=== PATIENT | female | born 1935 | race Caucasian/White ===

== ENCOUNTER 2016-09-01 07:35 | Inpatient (IN) | payer MEDICARE ==
[2016-09-01] VITALS (7 sets, daily range): BP systolic 126–152; BP diastolic 57–87
[~2016-09-01] VITALS: Ht 152.4 cm; Wt 73.6 kg
--- NOTE | ~2016-09-01 | ST ---
[place], [place] EXERCISE STRESS TEST REPORT NAME: [id number] UNIT #: [id number] ROOM: 503 DOCTOR: MINAL PURDY MD BIRTHDATE: [birth year] DOS: 09/02/2016 INDICATIONS: Central chest pressure. PROCEDURE: The patient was given a rapid infusion of regadenoson 0.4 mg intravenously followed by a saline flush. She experienced some chest discomfort and tachycardia, which resolved spontaneously. The resting heart rate of 117 buster to 139. The resting blood pressure of 140/84 fell to 110/50. She had no diagnostic electrocardiographic changes aside from the tachycardia. Forty seconds after the infusion of regadenoson, she was given radionuclide intravenously. IMPRESSION: 1. Well tolerated infusion of regadenoson. 2. Radionuclide injected. Please see the separate imaging report for further details of the patient's stress test results. MINAL PURDY MD CM:STRESS:EXERCISE STRESS TEST REPORT [id number] MINAL PURDY MD
--- NOTE | ~2016-09-01 | CON ---
[place], [place] REPORT OF CONSULTATION [id number] UNIT #: [id number] ROOM: 503 DOCTOR: MINAL PURDY MD BIRTHDATE: [birth year] DOS: 09/01/2016 REASON FOR CONSULTATION: Chest pressure consistent with coronary artery disease and ischemia. HISTORY OF PRESENT ILLNESS: The patient is an 80-year-old woman who has no documented history of heart disease. She was evaluated for chest pressure in 05/2006. A stress test at that time showed an ejection fraction of 44%, but no evidence for ischemia. Apparently, no further evaluation was done. The chart indicates that she might have had atrial fibrillation in the past, but she has no knowledge of this diagnosis. She specifically denies any history of heart attack or stroke. This morning, she got up as normal and was getting her breakfast when she noticed a heavy sensation in her chest. This did not radiate, but sat in the middle of her chest. It was not associated with diaphoresis, nausea or dyspnea; however, she did feel some numbness in her feet and felt generally weak. The symptoms did not resolve spontaneously, so she called family members who brought her to the Emergency Room. In the Emergency Room, her symptoms resolved spontaneously with a total duration of symptoms over an hour. The initial electrocardiogram showed sinus rhythm with low voltage in the precordial leads, but no specific ST or T-wave changes. Initial cardiac biomarkers were normal. PAST MEDICAL HISTORY: Includes; 1. Essential hypertension. 2. Hyperthyroidism. 3. Gastroesophageal reflux disease and dyspepsia. 4. History of diverticulosis. 5. History of cholecystectomy, breast biopsy, and hysterectomy. 6. Questionable history of atrial fibrillation. This is mentioned in the chart, but there is no good documentation available. MEDICATIONS Prior to admission, aspirin 81 mg daily, bethanechol 25 mg b.i.d., calcium carbonate with vitamin D 2 tablets daily, cyanocobalamin 500 mcg daily, diltiazem 300 mg daily, [place] 7.5/325 p.r.n., levothyroxine 88 mcg daily, loratadine 10 mg daily, magnesium oxide 400 mg b.i.d., pantoprazole 40 mg daily, potassium 10 mEq daily, pravastatin 20 mg at bedtime, Senokot 8.6 mg daily, and Aldactazide 25/25 one half tablet daily. ALLERGIES: The patient has no known drug allergies. FAMILY HISTORY: A paternal aunt had breast cancer and heart attack. Her father in a car wreck at age 53, and her mother of surgical complications and pancreatitis at age 73. REVIEW OF SYSTEMS: The patient denies diplopia or loss of vision. She denies lightheadedness or syncope. She denies palpitations, orthopnea or PND. She denies any focal weakness. She denies fevers, chills, sweats or recent weight change. She denies nausea or vomiting. She denies change in bowel or bladder habits. She denies bleeding from any orifice. She denies any peripheral edema. [place], [place] REPORT OF CONSULTATION NAME: MARION PHAN UNIT #: [id number] ROOM: [facility] DOCTOR: MINAL PURDY MD BIRTHDATE: [birth year] She does have frequent episodes of dyspepsia (food just lays in her abdomen). She does have significant arthritic pains in her back and hips. She denies heat or cold intolerance and denies polyuria or polydipsia. Remainder of the review of systems is negative except as noted above. SOCIAL HISTORY: The patient lives alone with family members nearby. She does not smoke or consume alcohol. PHYSICAL EXAMINATION: GENERAL: The patient is an overweight white female who is awake, alert and oriented. VITAL SIGNS: Pulse is 92 and regular, blood pressure is 149/87. She weighs 73.5 kg and has a body mass index of 31.6. HEENT: Normocephalic, atraumatic. Extraocular muscles are intact. Sclerae are clear. Pupils are equal, round and reactive to light. Oral mucosa is moist. Tongue is midline. NECK: Supple. She has no jugular distention. Carotids are full. I heard no bruits. She had no neck or supraclavicular masses. No thyromegaly. LUNGS: Respirations are unlabored. Her chest is clear to auscultation and percussion. She has no presacral edema or chest wall tenderness. I could not reproduce her chest pain by palpation of her chest. CARDIOVASCULAR: Her heart had a regular rhythm with an S4 gallop and no S3 or murmur. The PMI is not displaced. She had no precordial heave, lift or thrill. ABDOMEN: Obese, but otherwise benign, without masses, organomegaly, bruits or tenderness. EXTREMITIES: Showed no edema. Peripheral pulses were bounding in the feet bilaterally. LABORATORY DATA: I reviewed her electrocardiogram, which shows sinus rhythm with a leftward axis. There was low voltage in the precordial leads with poor precordial R-wave progression, no acute ST or T-wave changes were seen. Initial CK-MB and troponin levels are normal. IMPRESSION: 1. Central chest discomfort. Symptoms are consistent with angina, but she has no objective findings to suggest acute coronary injury. 2. Essential hypertension. 3. Gastroesophageal reflux disease. 4. Poorly documented history of possible atrial fibrillation. At this point, I think we have to assume that the patient does not have atrial fibrillation until proven otherwise. PLAN: We will monitor the patient overnight and check her cardiac biomarkers. If nothing shows up, she will undergo a pharmacologic stress test within the next 24 hours. I have discussed the indications of stress testing with the patient and her daughter, and they agreed to proceed with my recommendations. Further recommendations will depend upon the results of the stress test and her observation in the hospital. We will check an echocardiogram for left ventricular and left atrial size and function. [place], [place] REPORT OF CONSULTATION [facility] [id number] UNIT #: [id number] ROOM: [facility] DOCTOR: MINAL PURDY MD BIRTHDATE: [birth year] We thank the hospitalist physicians for asking our advice regarding her care. MINAL PURDY MD CM:CONSTR:REPORT OF CONSULTATION 1050 09/01/16 1236 interface
--- NOTE | ~2016-09-01 | PR ---
[place], [place] PROGRESS NOTE NAME: MARION PHAN [facility] #: [id number] UNIT #: [id number] ROOM: 503 DOCTOR: GURWINDER REGALADO,MINAL BIRTHDATE: [birth year] DOS: 09/02/2016 CARDIOLOGY PROGRESS NOTE SUBJECTIVE: The patient was seen in the Cardiology Department just prior to her stress test. She has had no further problems overnight and specifically denies any chest discomfort. Serial cardiac enzymes have been negative. Her electrocardiogram today shows sinus tachycardia, but no acute ST changes. PHYSICAL EXAMINATION: VITAL SIGNS: Her pulse is 117 and regular, blood pressure is 140/84. NECK: Supple. She has no jugular distention. CHEST: Clear. HEART: Has a regular rhythm with an S4 gallop. ABDOMEN: Soft. EXTREMITIES: Showed no edema. IMPRESSION: 1. Central chest discomfort, symptoms are consistent with angina, but thus far there have been no objective findings to suggest an acute coronary injury. 2. Essential hypertension. 3. Gastroesophageal reflux disease. 4. Poorly documented history of possible atrial fibrillation. At this point, I have no evidence to suggest that she truly does have atrial arrhythmias. PLAN: We will proceed with a pharmacologic stress test. Further recommendations depend upon the results of the test. MINAL PURDY MD CM:PNTRANS 1202 [id number] MINAL PURDY MD 09/02/16 1433 interface
[~2016-09-01 07:35] MED LIST: ALDACTONE100 MG PO; AMOXICILLIN500 MG PO; ASPIRIN ADULT L81 M1 PO; ASPIRIN81 M1 PO; BACTRIM DS 8001 TA1 PO; BETHANECHOL CHL25 MG PO; CALCIUM + D SO1 EACH PO; CARAFATE1 G1 PO; CARDIZEM CD300 MG PO; CIPROFLOXACIN500 MG PO; CLARITIN10 MG PO; CYCLOBENZAPRINE10 MG PO; Carafate1 GM/10 ML PO; DARVOCET N 1001 TAB PO; DICYCLOMINE10 MG PO; DILTIAZEM CD300 MG PO; FLAGYL500 MG PO; HYOMAX0.125 MG; IBU800 MG PO; K-DUR 1010 MEQ PO; KLOR-CON 1010 ME1 PO; LEVAQUIN750 MG PO; LEVOTHYROXIN0.088 MG PO; LEVOXYL0.088 MG PO; MAG-OX 400400 MG PO; MAGNESIUM OXID400 MG PO; MAGOX 400400 MG PO; MOBIC15 MG PO; NORCO 325 MG-7.1 TAB PO; NORCO 7.5-3251 EACH PO; PANTOPRAZOLE40 M1 PO; PERCOCET 325 MG1 TA2 PO; PRAVACHOL20 MG PO; PRILOSEC20 MG PO; PROTONIX TR40 M1 PO; PROTONIX40 M1 IV; PROTONIX40 MG PO; QUALITY CHOICE10 M3 PO; RANITIDINE150 MG PO; SEN-O-TABS8.6 MG PO; SENOKOT S PO; SPIRONOLACTONE1 TA1 PO; SPIRONOLACTONE1 TAB PO; VICODIN 5/500 505 M1 PO; VICODIN ES 7501 TAB PO; VITAMIN B12500 MCG PO; VOLTAREN GEL1% TP; ZANTAC 150150 MG PO; ZESTORETIC 25 M1 TA1 PO; ZITHROMAX250 MG PO; ZOCOR10 MG PO
[2016-09-01] MEDS ORDERED: ALDACTAZIDE 251 TAB PO (07:53)
[2016-09-01] MEDS ORDERED: VITAMIN B1250 MCG PO (07:55)
[2016-09-01 08:33] LABS: BASO % 0.5 % (0.0-1.0); EOS # 0.1 10*3/uL (0.0-0.4); EOS % 1.5 % (1.0-4.0); HEMATOCRIT 39.4 % (37.0-47.0); HEMOGLOBIN 13.1 g/dl (12.0-16.0); LYMPH # 1.6 10*3/uL (1.3-4.4); LYMPH % 18.5 % (27.0-41.0); MEAN CELL VOLUME 85.1 fl (81.0-99.0); MEAN CORPUSCULAR HGB 28.3 pg (27.0-31.0); MEAN CORPUSCULAR HGB CONC 33.2 g/dl (33.0-37.0); MEAN PLATELET VOLUME 9.1 fl (9.6-12.3); MONO # 0.8 10*3/uL (0.1-1.0); MONO % 8.6 % (3.0-9.0); NEUT # 6.2 10*3/uL (2.3-7.9); NEUT % 70.7 % (47.0-73.0); PLATELET COUNT AUTOMATED 245 10*3/uL (130-400); RED BLOOD COUNT 4.63 10*6/uL (4.10-5.10); RED CELL DISTRI WIDTH 15.1 % (0-14.5); WHITE BLOOD COUNT 8.8 10*3/uL (4.8-10.8)
[2016-09-01 08:42] LABS: INTERNATIONAL NORM RATIO 0.9 (2.0-3.5); PROTHROMBIN TIME 9.9 SECONDS (9.0-12.4)
[2016-09-01 08:51] LABS: ALBUMIN 3.4 gm/dl (3.1-4.5); ALKALINE PHOSPHATASE 85 U/L (45-117); BILIRUBIN, TOTAL 0.3 mg/dl (0.2-1.0); BUN 12 mg/dl (7-24); C-REACTIVE PROTEIN 0.37 MG/DL (0-0.3); CARBON DIOXIDE 28 mmol/L (21-32); CHLORIDE 104 mmol/L (98-107); CKMB 1.3 ng/ml (0.5-3.6); CPK 136 U/L (26-192); EST GLOM FILT AFRICAN AMERICAN > 60 ml/min; GLUCOSE 94 mg/dL (65-99); MAGNESIUM 1.8 mg/dL (1.5-2.1); POTASSIUM 3.5 mmol/L (3.5-5.1); SGOT/AST 16 IU/L (3-35); SGPT/ALT 28 U/L (12-78); SODIUM 143 mmol/L (136-145); TOTAL PROTEIN 7.1 gm/dL (6.4-8.2)
[2016-09-01 08:52] LABS: TROPONIN I < 0.015 ng/ml (<0.045)
[2016-09-01 09:07] LABS: BILIRUBIN NEGATIVE (NEGATIVE); BLOOD TRACE-INTACT (NEGATIVE); CLARITY CLEAR (CLEAR); COLOR YELLOW (YELLOW); GLUCOSE NEGATIVE (NEGATIVE); KETONE NEGATIVE (NEGATIVE); LEUKO ESTERASE NEGATIVE (NEGATIVE); NITRITE NEGATIVE (NEGATIVE); PROTEIN NEGATIVE (NEGATIVE); SPECIFIC GRAVITY <= 1.005 (1.005-1.030); UROBILINOGEN 0.2 E.U./dl (0.2-1.0)
[2016-09-01 09:17] LABS: BACTERIA 2+; EPITHELIAL CELLS 0-2; URINE REFLEX COMMENT YES (NO)
[2016-09-02] VITALS: BP 125/61
[2016-09-02 06:14] LABS: BASO % 0.5 % (0.0-1.0); EOS # 0.1 10*3/uL (0.0-0.4); EOS % 0.9 % (1.0-4.0); HEMATOCRIT 38.7 % (37.0-47.0); LYMPH % 15.5 % (27.0-41.0); MEAN CELL VOLUME 85.2 fl (81.0-99.0); MEAN CORPUSCULAR HGB 28.6 pg (27.0-31.0); MEAN CORPUSCULAR HGB CONC 33.6 g/dl (33.0-37.0); MEAN PLATELET VOLUME 9.3 fl (9.6-12.3); MONO # 0.8 10*3/uL (0.1-1.0); MONO % 11.6 % (3.0-9.0); NEUT # 4.7 10*3/uL (2.3-7.9); PLATELET COUNT AUTOMATED 232 10*3/uL (130-400); RED BLOOD COUNT 4.54 10*6/uL (4.10-5.10); RED CELL DISTRI WIDTH 15.1 % (0-14.5); WHITE BLOOD COUNT 6.7 10*3/uL (4.8-10.8)
[2016-09-02 06:38] LABS: HEMOGLOBIN A1c 6.2 % (4.8-5.6)
[2016-09-02 06:43] LABS: ALBUMIN 3.2 gm/dl (3.1-4.5); ALKALINE PHOSPHATASE 79 U/L (45-117); BILIRUBIN, TOTAL 0.4 mg/dl (0.2-1.0); BUN 12 mg/dl (7-24); CARBON DIOXIDE 31 mmol/L (21-32); CHLORIDE 105 mmol/L (98-107); CHOLESTEROL 188 mg/dL (<200); EST GLOM FILT AFRICAN AMERICAN > 60 ml/min; FREE T4 0.96 ng/dl (0.76-1.46); GLUCOSE 101 mg/dL (65-99); HDL CHOLESTEROL 62 mg/dl (40-60); LDL CHOLESTEROL 92 mg/dL (9-159); MAGNESIUM 1.8 mg/dL (1.5-2.1); PHOSPHOROUS 3.4 mg/dL (2.5-4.9); SGOT/AST 13 IU/L (3-35); SGPT/ALT 29 U/L (12-78); SODIUM 144 mmol/L (136-145); TOTAL PROTEIN 6.6 gm/dL (6.4-8.2); TRIGLYCERIDES 172 mg/dl (<150); VLDL CHOLESTEROL 34 mg/dL (6-40)
[2016-09-02 06:46] LABS: INTERNATIONAL NORM RATIO 0.9 (2.0-3.5)
[2016-09-02 06:50] LABS: VITAMIN D, 25-HYDROXY 13.1 ng/mL (30-100)
[2016-09-02 06:51] LABS: FOLIC ACID 13.65 ng/mL (>5.38)
[2016-09-02 08:00] VITALS: BP 132/86
[2016-09-02 16:00] VITALS: BP 124/77
[2016-09-02] MEDS ORDERED: VITAMIN D22000 UNIT PO (16:45)
== END 2016-09-02 18:12 | disposition home or self-care (01) | DRG 392 ==
LOC: ED 07:35 → EDHOLD 09:06 → 5E 09:06
PROVIDERS: Emergency Medicine; Student in an Organized Health Care Education/Training Program
PROC: 4A02XM4 Measurement of Cardiac Total Activity, External Approach (ICD-10-PCS; principal; 2016-09-02)
DX: K21.9 Gastro-esophageal reflux disease without esophagitis (principal); I10 Essential (primary) hypertension; E78.5 Hyperlipidemia, unspecified; E03.9 Hypothyroidism, unspecified; Z90.49 Acquired absence of other specified parts of digestive tract; Z90.710 Acquired absence of both cervix and uterus; Z85.038 Personal history of other malignant neoplasm of large intestine; Z79.82 Long term (current) use of aspirin; Z79.899 Other long term (current) drug therapy; Z82.49 Family history of ischemic heart disease and other diseases of the circulatory system; Z80.3 Family history of malignant neoplasm of breast

== ENCOUNTER 2017-07-16 21:36 | Emergency (ER) | payer MEDICARE ==
[~2017-07-16] VITALS: Ht 152.4 cm; Wt 73.9 kg
--- NOTE | ~2017-07-16 | EKG ---
[place], [place] ELECTROCARDIOGRAM REPORT NAME: MARION PHAN UNIT #: [id number] ROOM: DOCTOR: CURT FAIRBANKS MD BIRTHDATE: [birth year] DOS: 07/16/2017 TIME: 2204 hours. IMPRESSION: 1. Normal sinus rhythm at 97 beats per minute. 2. Mild left axis deviation. 3. Low voltage in precordial leads. 4. No previous tracing is available for comparison. CURT FAIRBANKS MD CM:EKGRPT:ELECTROCARDIOGRAM REPORT [id number] CURT FAIRBANKS MD
[~2017-07-16 21:36] MED LIST changes: +ALDACTAZIDE 251 TAB PO; +VITAMIN B1250 MCG PO; +VITAMIN D22000 UNIT PO
[2017-07-16 22:15] LABS: BASO # 0.1 10*3/uL (0.0-0.1); BASO % 0.5 % (0.0-1.0); EOS # 0.1 10*3/uL (0.0-0.4); EOS % 1.3 % (1.0-4.0); HEMATOCRIT 37.3 % (37.0-47.0); HEMOGLOBIN 12.5 g/dl (12.0-16.0); LYMPH # 1.7 10*3/uL (1.3-4.4); LYMPH % 15.1 % (27.0-41.0); MEAN CELL VOLUME 86.1 fl (81.0-99.0); MEAN CORPUSCULAR HGB 28.9 pg (27.0-31.0); MEAN CORPUSCULAR HGB CONC 33.5 g/dl (33.0-37.0); MEAN PLATELET VOLUME 9.2 fl (9.6-12.3); MONO # 1.1 10*3/uL (0.1-1.0); MONO % 9.5 % (3.0-9.0); NEUT # 8.1 10*3/uL (2.3-7.9); NEUT % 73.2 % (47.0-73.0); PLATELET COUNT AUTOMATED 272 10*3/uL (130-400); RED BLOOD COUNT 4.33 10*6/uL (4.10-5.10); RED CELL DISTRI WIDTH 14.1 % (0-14.5); WHITE BLOOD COUNT 11.1 10*3/uL (4.8-10.8)
[2017-07-16 22:30] LABS: ALBUMIN 3.6 gm/dl (3.1-4.5); CREATININE 1.13 mg/dL (0.55-1.02); POTASSIUM 3.5 mmol/L (3.5-5.1); TOTAL PROTEIN 7.1 gm/dL (6.4-8.2)
[2017-07-16] MEDS ORDERED: ZITHROMAX250 MG PO (22:52)
== END 2017-07-16 23:03 | disposition home or self-care (01) ==
LOC: ED 21:36
PROVIDERS: Emergency Medicine Emergency Medical Services
DX: J40 Bronchitis, not specified as acute or chronic (principal); K21.9 Gastro-esophageal reflux disease without esophagitis; E78.5 Hyperlipidemia, unspecified; I10 Essential (primary) hypertension; E03.9 Hypothyroidism, unspecified; Z85.038 Personal history of other malignant neoplasm of large intestine; Z98.890 Other specified postprocedural states; Z90.49 Acquired absence of other specified parts of digestive tract; Z90.710 Acquired absence of both cervix and uterus; Z79.82 Long term (current) use of aspirin; Z79.899 Other long term (current) drug therapy

== ENCOUNTER → 2017-08-12 | Outpatient (CLI) | payer MEDICARE | END | disposition home or self-care (01) | LOC: MAMMO 00:18 | DX: Z12.31 Encounter for screening mammogram for malignant neoplasm of breast (principal) ==

== ENCOUNTER → 2017-12-09 | Outpatient (CLI) | payer MEDICARE ==
[2017-12-09 08:36] LABS: BASO % 0.5 % (0.0-1.0); EOS # 0.1 10*3/uL (0.0-0.4); EOS % 1.3 % (1.0-4.0); HEMATOCRIT 40.7 % (37.0-47.0); HEMOGLOBIN 13.1 g/dl (12.0-16.0); LYMPH # 2.2 10*3/uL (1.3-4.4); MEAN CELL VOLUME 89.8 fl (81.0-99.0); MEAN CORPUSCULAR HGB 28.9 pg (27.0-31.0); MEAN CORPUSCULAR HGB CONC 32.2 g/dl (33.0-37.0); MEAN PLATELET VOLUME 9.5 fl (9.6-12.3); MONO # 0.7 10*3/uL (0.1-1.0); MONO % 9.1 % (3.0-9.0); NEUT # 4.8 10*3/uL (2.3-7.9); NEUT % 60.5 % (47.0-73.0); PLATELET COUNT AUTOMATED 275 10*3/uL (130-400); RED BLOOD COUNT 4.53 10*6/uL (4.10-5.10); RED CELL DISTRI WIDTH 14.1 % (0-14.5); WHITE BLOOD COUNT 7.9 10*3/uL (4.8-10.8)
[2017-12-09 08:57] LABS: ALBUMIN 3.5 gm/dl (3.1-4.5); BUN 12 mg/dl (7-24); CHLORIDE 101 mmol/L (98-107); CREATININE 0.93 mg/dL (0.55-1.02); POTASSIUM 3.7 mmol/L (3.5-5.1); SGOT/AST 23 IU/L (3-35); SGPT/ALT 29 U/L (12-78); SODIUM 141 mmol/L (136-145)
[2017-12-09 09:05] LABS: ALKALINE PHOSPHATASE 89 U/L (45-117); BILIRUBIN, DIRECT < 0.1 mg/dL (0.0-0.2); CHOLESTEROL 168 mg/dL (<200); FREE T4 1.06 ng/dl (0.76-1.46); HDL CHOLESTEROL 52 mg/dl (40-60); LDL CHOLESTEROL 85 mg/dL (9-159); PHOSPHOROUS 3.2 mg/dL (2.5-4.9); THYROID STIM HORMONE (HS) 0.514 uIU/ml (0.358-4.75); TOTAL PROTEIN 6.8 gm/dL (6.4-8.2); TRIGLYCERIDES 153 mg/dl (<150); VLDL CHOLESTEROL 31 mg/dL (6-40)
[2017-12-10 19:03] LABS: AMPHETAMINE SCREEN, URINE Negative ng/mL (Cutoff=1000); BARBITURATES SCREEN, URINE Negative ng/mL (Cutoff=200); BENZODIAZEPINES SCREEN URINE Negative ng/mL (Cutoff=200); BUPRENORPHINE SCREEN URINE Negative ng/mL (Cutoff=10); CANNABINOID SCREEN, URINE Negative ng/mL (Cutoff=20); CREATININE, UR 187.7 mg/dL (20.0-300.0); METHADONE SCREEN, URINE Negative ng/mL (Cutoff=300); OPIATE SCREEN, URINE Positive ng/mL (Cutoff=300); OXYCODONE SCREEN URINE Negative ng/mL (Cutoff=100); PH URINE 6.3 (4.5-8.9); PROPOXYPHENE SCREEN, URINE Negative ng/mL (Cutoff=300)
== END | disposition home or self-care (01) ==
LOC: LAB 06:58
PROVIDERS: Internal Medicine
DX: M48.061 Spinal stenosis, lumbar region without neurogenic claudication (principal); I10 Essential (primary) hypertension; E78.2 Mixed hyperlipidemia; E03.9 Hypothyroidism, unspecified; F11.90 Opioid use, unspecified, uncomplicated; G89.4 Chronic pain syndrome; J44.9 Chronic obstructive pulmonary disease, unspecified; Z79.899 Other long term (current) drug therapy

== ENCOUNTER 2019-09-27 06:06 | Emergency (ER) | payer MEDICARE ==
[~2019-09-27] VITALS: Ht 152.4 cm; Wt 71.7 kg
[~2019-09-27 06:06] MED LIST changes: +EMERGEN-C 500500 MG PO; +FLONASE ALLERG9.9 ML NAS; +METOPROLOL TART50 M1 PO; +VITAMIN D32000 UNI1 PO
[2019-09-27] MEDS ORDERED: MEDROL DOSEPAK4 MG PO (08:16)
== END 2019-09-27 08:24 | disposition home or self-care (01) ==
LOC: ED 06:06
DX: S33.5XXA Sprain of ligaments of lumbar spine, initial encounter (principal); I13.0 Hypertensive heart and chronic kidney disease with heart failure and stage 1 through stage 4 chronic kidney disease, or unspecified chronic kidney disease; I50.9 Heart failure, unspecified; N18.3 Chronic kidney disease, stage 3 (moderate); K21.9 Gastro-esophageal reflux disease without esophagitis; E78.5 Hyperlipidemia, unspecified; E03.9 Hypothyroidism, unspecified; E78.00 Pure hypercholesterolemia, unspecified; Z90.49 Acquired absence of other specified parts of digestive tract; Z90.710 Acquired absence of both cervix and uterus; Z79.899 Other long term (current) drug therapy; Z79.2 Long term (current) use of antibiotics; X58.XXXA Exposure to other specified factors, initial encounter; Y93.89 Activity, other specified; Y92.89 Other specified places as the place of occurrence of the external cause; Y99.8 Other external cause status

== ENCOUNTER 2019-12-21 20:19 | Inpatient (IN) | payer MEDICARE ==
[~2019-12-21] VITALS: Ht 152.4 cm; Wt 71.4 kg
[~2019-12-21 20:19] MED LIST changes: +MEDROL DOSEPAK4 MG PO
[2019-12-21 20:25] VITALS: BP 154/73
--- NOTE | 2019-12-21 21:01 | NUR ---
TINY SWAB COLLECTED AND WALKED TO LAB, HANDED TO RONNIE IN LAB.
[2019-12-21 21:06] LABS: BASO % 0.2 % (0.0-1.0); EOS % 0.1 % (1.0-4.0); HEMATOCRIT 35.7 % (37.0-47.0); LYMPH # 0.6 10*3/uL (1.3-4.4); LYMPH % 4.5 % (27.0-41.0); MEAN CELL VOLUME 87.5 fl (81.0-99.0); MEAN CORPUSCULAR HGB 28.2 pg (27.0-31.0); MEAN CORPUSCULAR HGB CONC 32.2 g/dl (33.0-37.0); MONO # 0.8 10*3/uL (0.1-1.0); MONO % 5.8 % (3.0-9.0); NEUT # 12.6 10*3/uL (2.3-7.9); PLATELET COUNT AUTOMATED 246 10*3/uL (130-400); RED BLOOD COUNT 4.08 10*6/uL (4.10-5.10); RED CELL DISTRI WIDTH 14.6 % (0-14.5); WHITE BLOOD COUNT 14.1 10*3/uL (4.8-10.8)
[2019-12-21 21:23] LABS: ACT PARTIAL THROMBO TIME 21.1 SECONDS (20.0-32.1)
[2019-12-21 21:28] LABS: ALBUMIN 2.9 gm/dl (3.1-4.5); ALKALINE PHOSPHATASE 80 U/L (45-117); BUN 12 mg/dl (7-24); CHLORIDE 105 mmol/L (98-107); CREATININE 0.97 mg/dL (0.55-1.02); POTASSIUM 3.7 mmol/L (3.5-5.1); SGOT/AST 29 IU/L (3-35); SGPT/ALT 27 U/L (12-78); SODIUM 137 mmol/L (136-145); TOTAL PROTEIN 6.5 gm/dL (6.4-8.2)
[2019-12-21 21:31] LABS: TROPONIN I < 0.015 ng/ml (<0.045)
[2019-12-21 21:52] VITALS: BP 126/65
--- NOTE | 2019-12-21 21:57 | NUR ---
PT WALKED TO RESTROOM WITH ASSISTANCE FROM THIS RN FOR URINE SAMPLE. AMBULATES WITH A STEADY GAIT. NAD NOTED.
[2019-12-21 22:10] LABS: BILIRUBIN NEGATIVE (NEGATIVE); BLOOD NEGATIVE (NEGATIVE); CLARITY CLEAR (CLEAR); COLOR YELLOW (YELLOW); GLUCOSE NEGATIVE (NEGATIVE); KETONE NEGATIVE (NEGATIVE); LEUKO ESTERASE TRACE (NEGATIVE); NITRITE NEGATIVE (NEGATIVE); PH 6.5 (5.0-9.0); UROBILINOGEN 0.2 E.U./dl (0.2-1.0)
[2019-12-21 22:15] LABS: BACTERIA TRACE; RBC 0-2 rbc/hpf (0-2)
--- NOTE | 2019-12-21 22:20 | NUR ---
PT UPDATED ON PLAN TO ADMIT. AGREEABLE AND DENIES FURTHER NEEDS. STATES PAIN HAS NOT COME BACK SINCE BEEN IN ED. WILL CONTINUE TO MONITOR.
--- NOTE | 2019-12-21 23:47 | NUR ---
PER ROAD ENGINEER PT TO HAVE ROOM RE-ASSIGNED D/T SUSPECTED COVID
[2019-12-22 00:30] VITALS: BP 91/72
--- NOTE | 2019-12-22 00:30 | NUR ---
Time: 29 A 84 year old F admitted to under services of INDIA OLMSTEAD DO. Pt. arrived via stretcher from ER. Chief complaint: FEVER; CHILLS & ABDOMINAL PAIN. MARION MCELROY
--- NOTE | 2019-12-22 01:48 | NUR ---
DR. GUADALUPE NOTIFIED THAT PATIENT DOES NOT KNOW WHAT HER HOME MEDICATIONS ARE & THAT HER DAUGHTER WILL BE EITHER CALLING IN WITH THE LIST OF MEDICATIONS OR BRINGING THE LIST IN.
--- NOTE | 2019-12-22 05:30 | NUR ---
ATTEMPTED TO DRAW BLOOD FOR LAB; UNABLE TO DRAW BLOOD. INFORMED PATIENT THAT LAB WOULD BE IN TO DRAW BLOOD; PT. VERBALIZED UNDERSTANDING.
--- NOTE | 2019-12-22 06:00 | NUR ---
VOICES NO C/O. NO DIARRHEA, AFEBRILE.
--- NOTE | 2019-12-22 06:35 | NUR ---
FLU SWAB OBTAINED & SENT TO LAB.
[2019-12-22 06:39] LABS: BASO % 0.3 % (0.0-1.0); EOS # 0.1 10*3/uL (0.0-0.4); EOS % 0.9 % (1.0-4.0); HEMATOCRIT 37.5 % (37.0-47.0); LYMPH # 1.6 10*3/uL (1.3-4.4); LYMPH % 13.6 % (27.0-41.0); MEAN CELL VOLUME 88.7 fl (81.0-99.0); MEAN CORPUSCULAR HGB 27.9 pg (27.0-31.0); MEAN CORPUSCULAR HGB CONC 31.5 g/dl (33.0-37.0); MEAN PLATELET VOLUME 9.3 fl (9.6-12.3); MONO # 0.9 10*3/uL (0.1-1.0); MONO % 7.7 % (3.0-9.0); NEUT # 9.1 10*3/uL (2.3-7.9); NEUT % 77.2 % (47.0-73.0); PLATELET COUNT AUTOMATED 274 10*3/uL (130-400); RED BLOOD COUNT 4.23 10*6/uL (4.10-5.10); RED CELL DISTRI WIDTH 14.9 % (0-14.5); WHITE BLOOD COUNT 11.7 10*3/uL (4.8-10.8)
[2019-12-22 06:41] LABS: ALBUMIN 2.9 gm/dl (3.1-4.5); ALKALINE PHOSPHATASE 84 U/L (45-117); BUN 11 mg/dl (7-24); CHLORIDE 106 mmol/L (98-107); CREATININE 0.99 mg/dL (0.55-1.02); POTASSIUM 3.2 mmol/L (3.5-5.1); SGOT/AST 19 IU/L (3-35); SGPT/ALT 26 U/L (12-78); SODIUM 140 mmol/L (136-145); TOTAL PROTEIN 6.6 gm/dL (6.4-8.2)
--- NOTE | 2019-12-22 07:00 | NUR ---
REPORT RECEIVED FROM PAT RN. PT LYING IN BED AT THIS TIME. VOICES NO COMPLAINTS, IV FLUIDS INFUSING WITHOUT DIFFICULTY. CALL LIGHT IN REACH
[2019-12-22 08:00] VITALS: BP 129/59
--- NOTE | 2019-12-22 08:30 | NUR ---
DR. THRASHER NOTIFIED OF COMPLETE MEDICATIONS
--- NOTE | 2019-12-22 10:00 | NUR ---
DOCTORS ON FLOOR, AWARE OF NEED FOR HOME MEDICATIONS.
--- NOTE | 2019-12-22 10:27 | NUR ---
DR. LIMON NOTIFIED OF CONSULT.
--- NOTE | 2019-12-22 10:31 | NUR ---
DR. COLUNGA'S ANSWERING SERVICE NOTIFIED OF CONSULT
--- NOTE | 2019-12-22 11:05 | NUR ---
IN TO SEE PT. PT STATES "IM FEELING MUCH BETTER" NO COMPLAINTS VOICED, CALL LIGHT IN REACH
[2019-12-22 12:00] VITALS: BP 148/69
--- NOTE | 2019-12-22 13:20 | NUR ---
PT LYING IN BED WATCHING TV. NO COMPLAINTS AT THIS TIME. CALL LIGHT IN REACH
--- NOTE | 2019-12-22 14:37 | NUR ---
TYLENOL GIVEN FOR COMPLAINTS OF ABDOMINAL DISCOMFORT. WILL MONITOR EFFECTIVENESS.
--- NOTE | 2019-12-22 15:30 | NUR ---
PT STATES, "TYLENOL HELPED"
[2019-12-22 16:00] VITALS: BP 149/73
--- NOTE | 2019-12-22 18:34 | NUR ---
DR. THRASHER NOTIFIED AGAIN OF NEED FOR HOME MEDICATIONS
[2019-12-22 20:00] VITALS: BP 141/72
--- NOTE | 2019-12-22 20:11 | NUR ---
PT MEDICATED WITH PRN NORCO FOR C/O PAIN RATED A 7/10. WILL MONITOR FOR EFFECTIVENESS.
--- NOTE | 2019-12-22 21:00 | NUR ---
PT REPORTS RELIEF OF PAIN. PRN NORCO EFFECTIVE.
[2019-12-23] VITALS: BP 123/53
[2019-12-23 04:43] LABS: ALBUMIN 2.9 gm/dl (3.1-4.5); ALKALINE PHOSPHATASE 79 U/L (45-117); BUN 9 mg/dl (7-24); CHLORIDE 110 mmol/L (98-107); CREATININE 0.76 mg/dL (0.55-1.02); POTASSIUM 3.7 mmol/L (3.5-5.1); SGOT/AST 22 IU/L (3-35); SGPT/ALT 25 U/L (12-78); SODIUM 142 mmol/L (136-145); TOTAL PROTEIN 6.4 gm/dL (6.4-8.2)
--- NOTE | 2019-12-23 04:54 | NUR ---
PT MEDICATED WITH PRN NORCO FOR C/O BACK PAIN RATED A 9/10. WILL MONITOR FOR EFFECTIVENESS.
--- NOTE | 2019-12-23 05:50 | NUR ---
PT REPORTS RELIEF OF BACK PAIN. PRN NORCO EFFECTIVE.
[2019-12-23 06:23] LABS: BASO % 0.4 % (0.0-1.0); EOS # 0.2 10*3/uL (0.0-0.4); EOS % 2.4 % (1.0-4.0); HEMATOCRIT 33.9 % (37.0-47.0); LYMPH # 1.3 10*3/uL (1.3-4.4); LYMPH % 19.7 % (27.0-41.0); MEAN CELL VOLUME 88.7 fl (81.0-99.0); MEAN CORPUSCULAR HGB CONC 31.6 g/dl (33.0-37.0); MEAN PLATELET VOLUME 9.7 fl (9.6-12.3); MONO # 0.7 10*3/uL (0.1-1.0); MONO % 10.9 % (3.0-9.0); NEUT # 4.5 10*3/uL (2.3-7.9); NEUT % 66.2 % (47.0-73.0); PLATELET COUNT AUTOMATED 235 10*3/uL (130-400); RED BLOOD COUNT 3.82 10*6/uL (4.10-5.10); RED CELL DISTRI WIDTH 14.8 % (0-14.5); WHITE BLOOD COUNT 6.8 10*3/uL (4.8-10.8)
[2019-12-23 08:00] VITALS: BP 149/75
[2019-12-23 16:00] VITALS: BP 131/57
[2019-12-23 20:00] VITALS: BP 119/52
--- NOTE | 2019-12-23 21:02 | NUR ---
PT MEDICATED WITH PRN NORCO FOR C/O BACK PAIN RATED A 9/10. WILL MONITOR FOR EFFECTIVENESS.
--- NOTE | 2019-12-23 22:45 | NUR ---
PT ASLEEP IN BED AT THIS TIME. NO S/S OF DISTRESS NOTED. PRN NORCO APPEARS EFFECTIVE.
[2019-12-24 06:23] LABS: BASO % 0.5 % (0.0-1.0); EOS # 0.2 10*3/uL (0.0-0.4); HEMATOCRIT 34.7 % (37.0-47.0); LYMPH # 1.5 10*3/uL (1.3-4.4); LYMPH % 26.5 % (27.0-41.0); MEAN CELL VOLUME 88.3 fl (81.0-99.0); MEAN CORPUSCULAR HGB CONC 31.7 g/dl (33.0-37.0); MEAN PLATELET VOLUME 9.5 fl (9.6-12.3); MONO # 0.6 10*3/uL (0.1-1.0); MONO % 11.7 % (3.0-9.0); NEUT # 3.1 10*3/uL (2.3-7.9); NEUT % 56.9 % (47.0-73.0); PLATELET COUNT AUTOMATED 237 10*3/uL (130-400); RED BLOOD COUNT 3.93 10*6/uL (4.10-5.10); RED CELL DISTRI WIDTH 14.6 % (0-14.5); WHITE BLOOD COUNT 5.5 10*3/uL (4.8-10.8)
[2019-12-24 06:41] LABS: ALBUMIN 2.8 gm/dl (3.1-4.5); ALKALINE PHOSPHATASE 77 U/L (45-117); BUN 8 mg/dl (7-24); CHLORIDE 109 mmol/L (98-107); CREATININE 0.93 mg/dL (0.55-1.02); POTASSIUM 3.8 mmol/L (3.5-5.1); SGOT/AST 20 IU/L (3-35); SGPT/ALT 21 U/L (12-78); SODIUM 141 mmol/L (136-145); TOTAL PROTEIN 6.3 gm/dL (6.4-8.2)
[2019-12-24 08:00] VITALS: BP 156/71
--- NOTE | 2019-12-24 08:42 | NUR ---
CATRINA GIVEN FOR COMPLAINTS OF GENERALIZED PAIN. CALL LIGHT IN REACH. WILL MONITOR.
[2019-12-24 12:00] VITALS: BP 160/74
--- NOTE | 2019-12-24 14:54 | NUR ---
CATRINA GIVEN FOR COMPLAINTS OF GENERALIZED PAIN, CALL LIGHT IN REACH. WILL MONITOR.
--- NOTE | 2019-12-24 15:46 | NUR ---
PER PT, NORCO EFFECTIVE.
[2019-12-24 16:00] VITALS: BP 154/68
[2019-12-24 20:00] VITALS: BP 140/59
--- NOTE | 2019-12-24 22:35 | NUR ---
PT MEDICATED WITH PRN NORCO FOR C/O BACK PAIN. WILL MONITOR FOR EFFECTIVENESS.
--- NOTE | 2019-12-24 23:30 | NUR ---
PT REPORTS RELIEF OF BACK PAIN AT THIS TIME. NO S/S OF DISTRESS NOTED.
[2019-12-25] VITALS: BP 127/73
[2019-12-25 06:12] LABS: BASO # 0.1 10*3/uL (0.0-0.1); BASO % 0.7 % (0.0-1.0); EOS # 0.3 10*3/uL (0.0-0.4); HEMATOCRIT 38.9 % (37.0-47.0); LYMPH # 2.2 10*3/uL (1.3-4.4); LYMPH % 31.9 % (27.0-41.0); MEAN CELL VOLUME 88.8 fl (81.0-99.0); MEAN CORPUSCULAR HGB 28.1 pg (27.0-31.0); MEAN CORPUSCULAR HGB CONC 31.6 g/dl (33.0-37.0); MEAN PLATELET VOLUME 9.2 fl (9.6-12.3); MONO # 0.7 10*3/uL (0.1-1.0); MONO % 9.3 % (3.0-9.0); NEUT # 3.7 10*3/uL (2.3-7.9); NEUT % 53.5 % (47.0-73.0); PLATELET COUNT AUTOMATED 273 10*3/uL (130-400); RED BLOOD COUNT 4.38 10*6/uL (4.10-5.10); RED CELL DISTRI WIDTH 14.6 % (0-14.5)
--- NOTE | 2019-12-25 07:30 | NUR ---
PT RESTING IN BED. VOICES NO CONCERNS AT THIS TIME. RESPS EASY AND NON LABORED. NO S/S OF DISTRESS NOTED. VSS. WHITE BOARD UPDATED. POC DISCUSSED W PT. CALL LIGHT WITHIN REACH. BS NORMOACTIVE, DENIES N/V/D/C,N/T,N/D. DENIES ANY FURTHER ABD PAIN.
[2019-12-25 08:00] VITALS: BP 136/68
--- NOTE | 2019-12-25 09:00 | NUR ---
Referral Management Liaison in to talk to patient. Patient states lives at home with daughter. There are 2 steps in the home. Physician: narendra [facility] none Patient's level of ADLs: INDEPENDENT Patient has working utilities: all working DME: walker, but doesn't use Follow-up physician's appointment after d/c: will be made by hospitalist nurse director upon discharge Does patient want to access PORTAL?: no Discharge plan discussed with patient, she states she lives at home with her daughter, she is independent in adls and ambulation, has a walker but rarely uses it, she stated she would return home when discharged, discussed with her VNA and educated her on the services they provide, she declines any home needs at this time, case management will follow. ALYCIA RIZO
--- NOTE | 2019-12-25 10:29 | NUR ---
PT C/O 10/28 ACHING CHRONIC BACK PAIN .MEDICATED PER ORDER . WILL MONITOR FOR RELIEF. VOICES NO OTHER CONCERNS AT THIS TIME. RESPS EASY AND NON LABORED. PT SITTING UP IN BED. CALL LIGHT WITHIN REACH
--- NOTE | 2019-12-25 11:29 | NUR ---
PAIN MEDICATION EFFECTIVE PER PT
[2019-12-25 12:00] VITALS: BP 128/72
[2019-12-25] MEDS ORDERED: CEFTRIAXONE2 G1 IV (15:00)
[2019-12-25 16:00] VITALS: BP 146/61
[2019-12-25 20:00] VITALS: BP 139/49
--- NOTE | 2019-12-25 21:15 | NUR ---
NORCO GIVEN PER PATIENT REQUEST FOR COMPLAINTS OF PAIN RATED 7/10. WILL ASSESS EFFECTIVENESS.
--- NOTE | 2019-12-25 22:10 | NUR ---
NORCO EFFECTIVE PER PATIENT. WILL CONTINUE TO MONITOR.
--- NOTE | 2019-12-25 22:48 | NUR ---
PATIENT RESTING QUIETLY IN BED. NO COMPLAINTS AT THIS TIME. WILL CONTINUE TO MONITOR.
[2019-12-26] VITALS: BP 140/68
--- NOTE | 2019-12-26 05:31 | NUR ---
NORCO GIVEN PER PATIENT REQUEST FOR COMPLAINTS OF CHRONIC BACK PAIN RATED 7/10. WILL ASSESS EFFECTIVENESS.
--- NOTE | 2019-12-26 06:29 | NUR ---
NORCO EFFECTIVE PER PATIENT. PAIN RATED 4/10. WILL CONTINUE TO MONITOR.
[2019-12-26 08:00] VITALS: BP 149/61
--- NOTE | 2019-12-26 08:57 | NUR ---
PT RESTING IN BED. NO DISTRESS NOTED WILL MONITOR
--- NOTE | 2019-12-26 09:26 | NUR ---
case management received a message that patient will need 10 more days of iv antibiotics and is scheduled for a midline today. discussed this with her and her insurance not covering home iv antibiotics, educated her she could come into the hospital daily and receive the antibiotics, she was agreeable to this. case management contacted central scheduling spoke to Maru, patient is scheduled for 9am daily starting tomorrow for iv antibiotic administration. also contacted pharmacy and educated them patient would be returning to the hospital for the antibiotics. faxed script and patient's information to central scheduling and pharmacy. educated patient her appointment time is 9am everyday for 10 days. patient stated she was able to drive and will drive herself to the hospital daily, case management will follow for any other needs
--- NOTE | 2019-12-26 11:20 | NUR ---
Discharge instructions reviewed with patient/family. Patient receptive and verbalizes understanding. Follow-up care arranged. Written instructions given to patient/family. HIRO GUADARRAMA
[2019-12-26 12:00] VITALS: BP 142/76
--- NOTE | 2019-12-26 13:57 | NUR ---
Discharge instructions reviewed with patient/family. Patient receptive and verbalizes understanding. Follow-up care arranged. Written instructions given to patient/family. HIRO GUADARRAMA
== END 2019-12-26 13:57 | disposition home or self-care (01) | DRG 872 ==
LOC: ED 20:19 → EDHOLD 23:34 → 4E 23:34
PROVIDERS: Emergency Medicine; Internal Medicine; ADMIT Family Medicine
PROC: 05HB33Z Insertion of Infusion Device into Right Basilic Vein, Percutaneous Approach (ICD-10-PCS; principal; 2019-12-26)
PROC: B54MZZA Ultrasonography of Right Upper Extremity Veins, Guidance (ICD-10-PCS; principal; 2019-12-26)
DX: A41.51 Sepsis due to Escherichia coli [E. coli] (principal); E44.1 Mild protein-calorie malnutrition; C18.9 Malignant neoplasm of colon, unspecified; I13.0 Hypertensive heart and chronic kidney disease with heart failure and stage 1 through stage 4 chronic kidney disease, or unspecified chronic kidney disease; K52.9 Noninfective gastroenteritis and colitis, unspecified; I50.9 Heart failure, unspecified; R65.20 Severe sepsis without septic shock; E87.6 Hypokalemia; D64.9 Anemia, unspecified; E87.8 Other disorders of electrolyte and fluid balance, not elsewhere classified; E78.5 Hyperlipidemia, unspecified; C44.90 Unspecified malignant neoplasm of skin, unspecified; K21.9 Gastro-esophageal reflux disease without esophagitis; E55.9 Vitamin D deficiency, unspecified; K57.90 Diverticulosis of intestine, part unspecified, without perforation or abscess without bleeding; N18.3 Chronic kidney disease, stage 3 (moderate); Z20.828 Contact with and (suspected) exposure to other viral communicable diseases; Z87.442 Personal history of urinary calculi; Z90.710 Acquired absence of both cervix and uterus; Z90.49 Acquired absence of other specified parts of digestive tract; Z79.82 Long term (current) use of aspirin; Z79.899 Other long term (current) drug therapy; Z68.32 Body mass index [BMI] 32.0-32.9, adult

== ENCOUNTER 2020-01-03 18:24 | Inpatient (IN) | payer MEDICARE ==
[~2020-01-03] VITALS: Ht 152.4 cm; Wt 75.5 kg
[~2020-01-03 18:24] MED LIST changes: +CEFTRIAXONE2 G1 IV
[2020-01-03 18:56] VITALS: BP 135/48
[2020-01-03 20:11] LABS: BASO # 0.1 10*3/uL (0.0-0.1); BASO % 0.5 % (0.0-1.0); EOS # 0.1 10*3/uL (0.0-0.4); EOS % 1.5 % (1.0-4.0); HEMATOCRIT 35.3 % (37.0-47.0); LYMPH # 0.8 10*3/uL (1.3-4.4); LYMPH % 8.3 % (27.0-41.0); MEAN CELL VOLUME 86.9 fl (81.0-99.0); MEAN CORPUSCULAR HGB 28.3 pg (27.0-31.0); MEAN CORPUSCULAR HGB CONC 32.6 g/dl (33.0-37.0); MONO # 0.4 10*3/uL (0.1-1.0); MONO % 4.4 % (3.0-9.0); NEUT % 84.9 % (47.0-73.0); PLATELET COUNT AUTOMATED 293 10*3/uL (130-400); RED BLOOD COUNT 4.06 10*6/uL (4.10-5.10); RED CELL DISTRI WIDTH 14.3 % (0-14.5); WHITE BLOOD COUNT 9.5 10*3/uL (4.8-10.8)
[2020-01-03 20:28] LABS: ALBUMIN 3.1 gm/dl (3.1-4.5); ALKALINE PHOSPHATASE 89 U/L (45-117); BUN 14 mg/dl (7-24); CHLORIDE 104 mmol/L (98-107); CREATININE 0.93 mg/dL (0.55-1.02); POTASSIUM 3.9 mmol/L (3.5-5.1); SGOT/AST 12 IU/L (3-35); SGPT/ALT 20 U/L (12-78); SODIUM 138 mmol/L (136-145); TOTAL PROTEIN 6.6 gm/dL (6.4-8.2)
[2020-01-03 20:38] LABS: BILIRUBIN NEGATIVE (NEGATIVE); CLARITY CLEAR (CLEAR); COLOR YELLOW (YELLOW); GLUCOSE NEGATIVE (NEGATIVE); KETONE NEGATIVE (NEGATIVE)
[2020-01-03 20:39] LABS: BLOOD NEGATIVE (NEGATIVE); LEUKO ESTERASE 2+ (NEGATIVE); NITRITE NEGATIVE (NEGATIVE); SPECIFIC GRAVITY 1.015 (1.005-1.030); UROBILINOGEN 0.2 E.U./dl (0.2-1.0)
[2020-01-03 20:43] LABS: BACTERIA 1+; YEAST TRACE
[2020-01-03 21:25] VITALS: BP 119/55
[2020-01-03 23:55] VITALS: BP 119/55
[2020-01-04] VITALS (7 sets, daily range): BP systolic 119–156; BP diastolic 57–68
[2020-01-04 06:22] LABS: ALBUMIN 2.8 gm/dl (3.1-4.5); ALKALINE PHOSPHATASE 75 U/L (45-117); BUN 10 mg/dl (7-24); CHLORIDE 105 mmol/L (98-107); CREATININE 0.82 mg/dL (0.55-1.02); POTASSIUM 3.6 mmol/L (3.5-5.1); SGOT/AST 15 IU/L (3-35); SGPT/ALT 15 U/L (12-78); SODIUM 138 mmol/L (136-145); TOTAL PROTEIN 6.2 gm/dL (6.4-8.2)
[2020-01-04 06:27] LABS: BASO % 0.6 % (0.0-1.0); EOS # 0.1 10*3/uL (0.0-0.4); EOS % 1.4 % (1.0-4.0); HEMATOCRIT 34.4 % (37.0-47.0); LYMPH # 1.2 10*3/uL (1.3-4.4); LYMPH % 16.1 % (27.0-41.0); MEAN CELL VOLUME 87.8 fl (81.0-99.0); MEAN CORPUSCULAR HGB 28.1 pg (27.0-31.0); MEAN PLATELET VOLUME 9.5 fl (9.6-12.3); MONO # 0.4 10*3/uL (0.1-1.0); MONO % 5.4 % (3.0-9.0); NEUT # 5.5 10*3/uL (2.3-7.9); NEUT % 76.2 % (47.0-73.0); PLATELET COUNT AUTOMATED 266 10*3/uL (130-400); RED BLOOD COUNT 3.92 10*6/uL (4.10-5.10); RED CELL DISTRI WIDTH 14.4 % (0-14.5); WHITE BLOOD COUNT 7.2 10*3/uL (4.8-10.8)
[2020-01-05] VITALS: BP 137/54
[2020-01-05 07:01] LABS: BASO % 0.6 % (0.0-1.0); EOS # 0.2 10*3/uL (0.0-0.4); EOS % 4.3 % (1.0-4.0); HEMATOCRIT 36.4 % (37.0-47.0); LYMPH # 1.4 10*3/uL (1.3-4.4); LYMPH % 26.8 % (27.0-41.0); MEAN CELL VOLUME 90.1 fl (81.0-99.0); MEAN PLATELET VOLUME 9.3 fl (9.6-12.3); MONO # 0.7 10*3/uL (0.1-1.0); MONO % 13.8 % (3.0-9.0); NEUT # 2.9 10*3/uL (2.3-7.9); NEUT % 53.8 % (47.0-73.0); PLATELET COUNT AUTOMATED 253 10*3/uL (130-400); RED BLOOD COUNT 4.04 10*6/uL (4.10-5.10); RED CELL DISTRI WIDTH 14.5 % (0-14.5); WHITE BLOOD COUNT 5.4 10*3/uL (4.8-10.8)
[2020-01-05 07:13] LABS: ALBUMIN 2.8 gm/dl (3.1-4.5); BUN 8 mg/dl (7-24); CHLORIDE 108 mmol/L (98-107); POTASSIUM 3.7 mmol/L (3.5-5.1); SODIUM 141 mmol/L (136-145)
[2020-01-05 07:17] LABS: ALKALINE PHOSPHATASE 65 U/L (45-117); CREATININE 0.78 mg/dL (0.55-1.02); SGOT/AST 18 IU/L (3-35); SGPT/ALT 17 U/L (12-78); TOTAL PROTEIN 6.3 gm/dL (6.4-8.2)
[2020-01-05 08:00] VITALS: BP 132/66
[2020-01-05 12:00] VITALS: BP 139/75
[2020-01-05 16:00] VITALS: BP 133/63
[2020-01-05 20:00] VITALS: BP 142/71
[2020-01-06] VITALS: BP 119/52
[2020-01-06 06:41] LABS: BASO % 0.7 % (0.0-1.0); EOS # 0.2 10*3/uL (0.0-0.4); EOS % 3.9 % (1.0-4.0); HEMATOCRIT 35.6 % (37.0-47.0); LYMPH # 0.8 10*3/uL (1.3-4.4); LYMPH % 14.7 % (27.0-41.0); MEAN CELL VOLUME 87.5 fl (81.0-99.0); MONO # 0.5 10*3/uL (0.1-1.0); NEUT # 4.1 10*3/uL (2.3-7.9); NEUT % 72.3 % (47.0-73.0); PLATELET COUNT AUTOMATED 224 10*3/uL (130-400); RED BLOOD COUNT 4.07 10*6/uL (4.10-5.10); RED CELL DISTRI WIDTH 14.4 % (0-14.5); WHITE BLOOD COUNT 5.6 10*3/uL (4.8-10.8)
[2020-01-06 07:17] LABS: BUN 9 mg/dl (7-24); CHLORIDE 106 mmol/L (98-107); CREATININE 0.94 mg/dL (0.55-1.02); SODIUM 139 mmol/L (136-145)
[2020-01-06 08:00] VITALS: BP 135/66
[2020-01-06 12:00] VITALS: BP 129/70
== END 2020-01-06 17:26 | disposition home or self-care (01) | DRG 640 ==
LOC: ED 18:24 → 4E 01-04 00:46 → EDHOLD 01-04 00:46 → 4E 01-04 08:25
PROVIDERS: Emergency Medicine; Internal Medicine; ADMIT Internal Medicine
DX: E86.0 Dehydration (principal); A41.9 Sepsis, unspecified organism; N39.0 Urinary tract infection, site not specified; C18.9 Malignant neoplasm of colon, unspecified; I13.0 Hypertensive heart and chronic kidney disease with heart failure and stage 1 through stage 4 chronic kidney disease, or unspecified chronic kidney disease; I50.32 Chronic diastolic (congestive) heart failure; E44.0 Moderate protein-calorie malnutrition; E78.5 Hyperlipidemia, unspecified; K21.9 Gastro-esophageal reflux disease without esophagitis; N18.3 Chronic kidney disease, stage 3 (moderate); E03.9 Hypothyroidism, unspecified; E55.9 Vitamin D deficiency, unspecified; N31.9 Neuromuscular dysfunction of bladder, unspecified; D64.9 Anemia, unspecified; Z20.828 Contact with and (suspected) exposure to other viral communicable diseases; E66.9 Obesity, unspecified; Z90.49 Acquired absence of other specified parts of digestive tract; Z68.31 Body mass index [BMI] 31.0-31.9, adult; Z90.710 Acquired absence of both cervix and uterus; Z82.49 Family history of ischemic heart disease and other diseases of the circulatory system; Z80.9 Family history of malignant neoplasm, unspecified; Z83.1 Family history of other infectious and parasitic diseases; Z79.82 Long term (current) use of aspirin; Z68.32 Body mass index [BMI] 32.0-32.9, adult

== ENCOUNTER 2020-01-16 13:09 | Inpatient (IN) | payer MEDICARE ==
[~2020-01-16] VITALS: Ht 162.5 cm; Wt 74.2 kg
[2020-01-16 13:21] VITALS: BP 103/75
[2020-01-16 14:17] LABS: BASO % 0.3 % (0.0-1.0); EOS % 0.1 % (1.0-4.0); HEMATOCRIT 37.1 % (37.0-47.0); LYMPH # 1.1 10*3/uL (1.3-4.4); LYMPH % 7.3 % (27.0-41.0); MEAN CELL VOLUME 87.1 fl (81.0-99.0); MEAN CORPUSCULAR HGB 28.4 pg (27.0-31.0); MEAN CORPUSCULAR HGB CONC 32.6 g/dl (33.0-37.0); MONO # 1.2 10*3/uL (0.1-1.0); MONO % 8.2 % (3.0-9.0); NEUT % 83.5 % (47.0-73.0); PLATELET COUNT AUTOMATED 276 10*3/uL (130-400); RED BLOOD COUNT 4.26 10*6/uL (4.10-5.10); RED CELL DISTRI WIDTH 14.6 % (0-14.5); WHITE BLOOD COUNT 14.4 10*3/uL (4.8-10.8)
[2020-01-16 14:33] LABS: ALBUMIN 3.2 gm/dl (3.1-4.5); ALKALINE PHOSPHATASE 77 U/L (45-117); BUN 10 mg/dl (7-24); CHLORIDE 102 mmol/L (98-107); CREATININE 0.88 mg/dL (0.55-1.02); LIPASE 31 U/L (73-393); POTASSIUM 3.9 mmol/L (3.5-5.1); SGOT/AST 15 IU/L (3-35); SGPT/ALT 18 U/L (12-78); SODIUM 136 mmol/L (136-145); TOTAL PROTEIN 7.1 gm/dL (6.4-8.2)
[2020-01-16 14:36] LABS: TROPONIN I < 0.015 ng/ml (<0.045)
[2020-01-16 15:04] LABS: ACT PARTIAL THROMBO TIME 25.2 SECONDS (20.0-32.1)
[2020-01-16 15:45] VITALS: BP 124/67
[2020-01-16 16:28] LABS: BACTERIA 1+; BILIRUBIN NEGATIVE (NEGATIVE); BLOOD NEGATIVE (NEGATIVE); CLARITY CLEAR (CLEAR); COLOR YELLOW (YELLOW); GLUCOSE NEGATIVE (NEGATIVE); KETONE NEGATIVE (NEGATIVE); LEUKO ESTERASE NEGATIVE (NEGATIVE); NITRITE NEGATIVE (NEGATIVE); RBC 0-2 rbc/hpf (0-2); SPECIFIC GRAVITY 1.005 (1.005-1.030); UROBILINOGEN 0.2 E.U./dl (0.2-1.0); WBC 0-2 wbc/hpf (0-5)
[2020-01-16 17:31] VITALS: BP 136/61
[2020-01-16 18:35] VITALS: BP 136/74
[2020-01-16 20:00] VITALS: BP 118/59
[2020-01-17] VITALS: BP 119/58
[2020-01-17 07:35] LABS: BASO % 0.2 % (0.0-1.0); EOS # 0.1 10*3/uL (0.0-0.4); EOS % 0.4 % (1.0-4.0); HEMATOCRIT 33.1 % (37.0-47.0); LYMPH # 1.3 10*3/uL (1.3-4.4); LYMPH % 9.9 % (27.0-41.0); MEAN CELL VOLUME 87.8 fl (81.0-99.0); MEAN CORPUSCULAR HGB 28.6 pg (27.0-31.0); MEAN CORPUSCULAR HGB CONC 32.6 g/dl (33.0-37.0); MEAN PLATELET VOLUME 9.4 fl (9.6-12.3); MONO # 1.4 10*3/uL (0.1-1.0); MONO % 10.9 % (3.0-9.0); NEUT # 10.1 10*3/uL (2.3-7.9); NEUT % 78.1 % (47.0-73.0); PLATELET COUNT AUTOMATED 260 10*3/uL (130-400); RED BLOOD COUNT 3.77 10*6/uL (4.10-5.10); RED CELL DISTRI WIDTH 14.7 % (0-14.5)
[2020-01-17 08:08] LABS: ACT PARTIAL THROMBO TIME 26.8 SECONDS (20.0-32.1); INTERNATIONAL NORM RATIO 1.1 (2.0-3.5)
[2020-01-17 08:11] LABS: ALBUMIN 2.6 gm/dl (3.1-4.5); BUN 8 mg/dl (7-24); CHLORIDE 102 mmol/L (98-107); CHOLESTEROL 147 mg/dL (<200); CREATININE 0.83 mg/dL (0.55-1.02); HDL CHOLESTEROL 57 mg/dl (40-60); POTASSIUM 3.5 mmol/L (3.5-5.1); SGOT/AST 12 IU/L (3-35); SGPT/ALT 15 U/L (12-78); SODIUM 137 mmol/L (136-145)
[2020-01-17 08:18] LABS: ALKALINE PHOSPHATASE 67 U/L (45-117); FREE T4 1.55 ng/dl (0.76-1.46); LDL CHOLESTEROL 72 mg/dL (9-159); TOTAL PROTEIN 6.4 gm/dL (6.4-8.2); TRIGLYCERIDES 92 mg/dl (<150); VLDL CHOLESTEROL 18 mg/dL (6-40)
[2020-01-17 12:00] VITALS: BP 128/56
[2020-01-17 16:00] VITALS: BP 130/34
[2020-01-17 20:00] VITALS: BP 116/49
[2020-01-18] VITALS: BP 107/50
[2020-01-18 07:03] LABS: BASO % 0.2 % (0.0-1.0); EOS # 0.3 10*3/uL (0.0-0.4); EOS % 3.3 % (1.0-4.0); HEMATOCRIT 33.2 % (37.0-47.0); LYMPH # 1.4 10*3/uL (1.3-4.4); LYMPH % 15.3 % (27.0-41.0); MEAN CORPUSCULAR HGB 28.2 pg (27.0-31.0); MEAN CORPUSCULAR HGB CONC 31.6 g/dl (33.0-37.0); MEAN PLATELET VOLUME 9.5 fl (9.6-12.3); MONO # 0.9 10*3/uL (0.1-1.0); MONO % 9.4 % (3.0-9.0); NEUT # 6.5 10*3/uL (2.3-7.9); NEUT % 71.4 % (47.0-73.0); PLATELET COUNT AUTOMATED 243 10*3/uL (130-400); RED BLOOD COUNT 3.73 10*6/uL (4.10-5.10); RED CELL DISTRI WIDTH 14.5 % (0-14.5); WHITE BLOOD COUNT 9.1 10*3/uL (4.8-10.8)
[2020-01-18 07:17] LABS: ALBUMIN 2.4 gm/dl (3.1-4.5); ALKALINE PHOSPHATASE 67 U/L (45-117); BUN 9 mg/dl (7-24); CHLORIDE 106 mmol/L (98-107); POTASSIUM 3.8 mmol/L (3.5-5.1); SGOT/AST 15 IU/L (3-35); SGPT/ALT 13 U/L (12-78); SODIUM 140 mmol/L (136-145); TOTAL PROTEIN 6.4 gm/dL (6.4-8.2)
[2020-01-18 08:00] VITALS: BP 121/63
[2020-01-18 12:00] VITALS: BP 101/60
[2020-01-18 16:00] VITALS: BP 123/62
[2020-01-18 20:00] VITALS: BP 128/81
[2020-01-19] VITALS: BP 123/51
[2020-01-19 06:19] LABS: BASO % 0.3 % (0.0-1.0); EOS # 0.3 10*3/uL (0.0-0.4); EOS % 3.3 % (1.0-4.0); HEMATOCRIT 32.6 % (37.0-47.0); LYMPH # 1.3 10*3/uL (1.3-4.4); LYMPH % 14.4 % (27.0-41.0); MEAN CELL VOLUME 88.1 fl (81.0-99.0); MEAN CORPUSCULAR HGB 28.1 pg (27.0-31.0); MEAN CORPUSCULAR HGB CONC 31.9 g/dl (33.0-37.0); MEAN PLATELET VOLUME 9.5 fl (9.6-12.3); MONO # 0.8 10*3/uL (0.1-1.0); NEUT # 6.4 10*3/uL (2.3-7.9); NEUT % 72.5 % (47.0-73.0); PLATELET COUNT AUTOMATED 281 10*3/uL (130-400); RED CELL DISTRI WIDTH 14.2 % (0-14.5); WHITE BLOOD COUNT 8.8 10*3/uL (4.8-10.8)
[2020-01-19 12:00] VITALS: BP 134/82
[2020-01-19] MEDS ORDERED: AUGMENTIN 875-875 MG PO (15:47)
[2020-01-19] MEDS ORDERED: DELZICOL400 M2 PO (15:54)
[2020-01-19 16:00] VITALS: BP 135/50
== END 2020-01-19 16:22 | disposition home or self-care (01) | DRG 872 ==
LOC: ED 13:09 → EDHOLD 16:42 → 4E 17:09
PROVIDERS: Hospitalist; Internal Medicine; Nurse Practitioner Family; ADMIT Internal Medicine
DX: A41.9 Sepsis, unspecified organism (principal); I13.0 Hypertensive heart and chronic kidney disease with heart failure and stage 1 through stage 4 chronic kidney disease, or unspecified chronic kidney disease; I50.9 Heart failure, unspecified; N18.3 Chronic kidney disease, stage 3 (moderate); R73.9 Hyperglycemia, unspecified; E78.2 Mixed hyperlipidemia; K21.9 Gastro-esophageal reflux disease without esophagitis; E03.9 Hypothyroidism, unspecified; E86.0 Dehydration; K52.9 Noninfective gastroenteritis and colitis, unspecified; E66.9 Obesity, unspecified; K57.90 Diverticulosis of intestine, part unspecified, without perforation or abscess without bleeding; Z85.038 Personal history of other malignant neoplasm of large intestine; Z90.49 Acquired absence of other specified parts of digestive tract; Z90.710 Acquired absence of both cervix and uterus; Z79.899 Other long term (current) drug therapy; Z79.82 Long term (current) use of aspirin; Z79.890 Hormone replacement therapy; Z85.828 Personal history of other malignant neoplasm of skin; Z68.28 Body mass index [BMI] 28.0-28.9, adult

== ENCOUNTER → 2020-11-20 | Outpatient (CLI) | payer MEDICARE ==
[~2020-11-20] MED LIST changes: +AUGMENTIN 875-875 MG PO; +DELZICOL400 M2 PO
== END | disposition home or self-care (01) ==
LOC: RAD 07:01
PROVIDERS: ATTEND Internal Medicine
DX: M47.814 Spondylosis without myelopathy or radiculopathy, thoracic region (principal); M48.04 Spinal stenosis, thoracic region; M25.78 Osteophyte, vertebrae

== ENCOUNTER → 2021-05-08 | Outpatient (CLI) | payer MEDICARE | END | disposition home or self-care (01) | LOC: COVID19 15:02 | PROVIDERS: ATTEND Internal Medicine | DX: Z11.52 Encounter for screening for COVID-19 (principal) ==

== ENCOUNTER 2021-08-25 23:13 | Emergency (ER) | payer MEDICARE ==
[~2021-08-25] VITALS: Wt 72.6 kg
[2021-08-25 23:58] LABS: BASO % 0.3 % (0.0-1.0); EOS # 0.1 10*3/uL (0.0-0.4); EOS % 1.1 % (1.0-4.0); HEMATOCRIT 40.1 % (37.0-47.0); LYMPH # 0.5 10*3/uL (1.3-4.4); LYMPH % 4.7 % (27.0-41.0); MEAN CELL VOLUME 86.8 fl (81.0-99.0); MEAN CORPUSCULAR HGB 28.1 pg (27.0-31.0); MEAN CORPUSCULAR HGB CONC 32.4 g/dl (33.0-37.0); MEAN PLATELET VOLUME 9.2 fl (9.6-12.3); MONO # 0.8 10*3/uL (0.1-1.0); MONO % 7.2 % (3.0-9.0); NEUT # 9.8 10*3/uL (2.3-7.9); NEUT % 86.5 % (47.0-73.0); PLATELET COUNT AUTOMATED 252 10*3/uL (130-400); RED BLOOD COUNT 4.62 10*6/uL (4.10-5.10); RED CELL DISTRI WIDTH 13.6 % (0-14.5); WHITE BLOOD COUNT 11.4 10*3/uL (4.8-10.8)
[2021-08-26 00:14] LABS: ALKALINE PHOSPHATASE 74 U/L (45-117); BUN 13 mg/dl (7-24); CHLORIDE 103 mmol/L (98-107); CREATININE 0.95 mg/dL (0.55-1.02); LIPASE 71 U/L (73-393); POTASSIUM 3.9 mmol/L (3.5-5.1); SGPT/ALT 17 U/L (12-78); SODIUM 139 mmol/L (136-145); TOTAL PROTEIN 7.1 gm/dL (6.4-8.2)
[2021-08-26 00:16] LABS: SGOT/AST 17 IU/L (3-35)
[2021-08-26] MEDS ORDERED: ZOFRAN4 MG PO (00:45)
== END 2021-08-26 00:50 | disposition home or self-care (01) ==
LOC: ED 23:13
PROVIDERS: Internal Medicine
DX: K52.9 Noninfective gastroenteritis and colitis, unspecified (principal); Z79.899 Other long term (current) drug therapy; Z79.82 Long term (current) use of aspirin; Z90.49 Acquired absence of other specified parts of digestive tract; Z98.890 Other specified postprocedural states; Z90.710 Acquired absence of both cervix and uterus

== ENCOUNTER 2021-08-26 08:19 | Emergency (ER) | payer MEDICARE ==
[~2021-08-26] VITALS: Ht 152.4 cm; Wt 72.6 kg
[~2021-08-26 08:19] MED LIST changes: +ZOFRAN4 MG PO
[2021-08-26 08:56] LABS: HEMATOCRIT 41.4 % (37.0-47.0); MEAN CELL VOLUME 87.2 fl (81.0-99.0); MEAN CORPUSCULAR HGB 28.2 pg (27.0-31.0); MEAN CORPUSCULAR HGB CONC 32.4 g/dl (33.0-37.0); PLATELET COUNT AUTOMATED 238 10*3/uL (130-400); RED BLOOD COUNT 4.75 10*6/uL (4.10-5.10); RED CELL DISTRI WIDTH 13.8 % (0-14.5)
[2021-08-26 08:57] LABS: MANUAL DIFF REFLEX YES
[2021-08-26 09:15] LABS: ALKALINE PHOSPHATASE 63 U/L (45-117); BUN 11 mg/dl (7-24); CHLORIDE 106 mmol/L (98-107); CREATININE 0.99 mg/dL (0.55-1.02); LIPASE 44 U/L (73-393); POTASSIUM 4.1 mmol/L (3.5-5.1); SGOT/AST 13 IU/L (3-35); SGPT/ALT 16 U/L (12-78); SODIUM 140 mmol/L (136-145); TOTAL PROTEIN 6.8 gm/dL (6.4-8.2)
[2021-08-26 09:16] LABS: BASOPHILS 1 % (0-1); TOTAL CELLS COUNTED 100 #CELLS; TOXIC GRANULATION MODERATE; VACUOLATION OF NEUTROPHILS SLIGHT
[2021-08-26 09:17] LABS: PLATELET SUFFICIENCY NORMAL (NORMAL); POLYCHROMASIA SLIGHT
== END 2021-08-26 10:54 | disposition home or self-care (01) ==
LOC: ED 08:19
PROVIDERS: Emergency Medicine
DX: R19.7 Diarrhea, unspecified (principal); Z79.899 Other long term (current) drug therapy; Z79.82 Long term (current) use of aspirin; Z98.890 Other specified postprocedural states; Z90.49 Acquired absence of other specified parts of digestive tract; Z90.710 Acquired absence of both cervix and uterus

== ENCOUNTER 2022-02-01 07:43 | Emergency (ER) | payer MEDICARE ==
[~2022-02-01] VITALS: Ht 152.4 cm; Wt 72.1 kg
[2022-02-01 08:33] LABS: BASO # 0.1 10*3/uL (0.0-0.1); BASO % 0.7 % (0.0-1.0); EOS # 0.2 10*3/uL (0.0-0.4); EOS % 2.7 % (1.0-4.0); HEMATOCRIT 38.3 % (37.0-47.0); LYMPH # 1.4 10*3/uL (1.3-4.4); LYMPH % 19.2 % (27.0-41.0); MEAN CORPUSCULAR HGB 28.6 pg (27.0-31.0); MEAN CORPUSCULAR HGB CONC 32.9 g/dl (33.0-37.0); MEAN PLATELET VOLUME 9.1 fl (9.6-12.3); MONO # 0.7 10*3/uL (0.1-1.0); MONO % 8.9 % (3.0-9.0); NEUT # 5.1 10*3/uL (2.3-7.9); NEUT % 68.1 % (47.0-73.0); PLATELET COUNT AUTOMATED 252 10*3/uL (130-400); RED CELL DISTRI WIDTH 14.1 % (0-14.5); WHITE BLOOD COUNT 7.4 10*3/uL (4.8-10.8)
[2022-02-01 08:49] LABS: ALKALINE PHOSPHATASE 90 U/L (45-117); BUN 16 mg/dl (7-24); CHLORIDE 106 mmol/L (98-107); CREATININE 0.97 mg/dL (0.55-1.02); LIPASE 83 U/L (73-393); POTASSIUM 3.7 mmol/L (3.5-5.1); SGOT/AST 16 IU/L (3-35); SGPT/ALT 16 U/L (12-78); SODIUM 140 mmol/L (136-145)
[2022-02-01 09:23] LABS: BILIRUBIN Negative (Negative); BLOOD Negative (Negative); CLARITY Clear (Clear); COLOR Yellow (Yellow); GLUCOSE Negative (Negative); KETONE Negative (Negative); LEUKO ESTERASE Negative (Negative); NITRITE Negative (Negative); UROBILINOGEN 0.2 E.U./dl (0.0-1.0)
[2022-02-01 09:48] LABS: BACTERIA TRACE; EPITHELIAL CELLS 0-2; RBC 0-2 rbc/hpf (0-2); WBC 0-2 wbc/hpf (0-5)
== END 2022-02-01 10:10 | disposition home or self-care (01) ==
LOC: ED 07:43
PROVIDERS: Family Medicine
DX: K52.9 Noninfective gastroenteritis and colitis, unspecified (principal); Z79.899 Other long term (current) drug therapy; Z79.82 Long term (current) use of aspirin; Z90.49 Acquired absence of other specified parts of digestive tract; Z98.890 Other specified postprocedural states; Z90.710 Acquired absence of both cervix and uterus

== ENCOUNTER 2022-08-11 20:10 | Emergency (ER) | payer MEDICARE ==
[~2022-08-11] VITALS: Ht 165.1 cm; Wt 81.6 kg
[~2022-08-11 20:10] MED LIST changes: +ALDACTIZIDE 25-1 TAB PO; +HYDROCODONE-AC1 EAC2 PO; +LEVOFLOXACIN750 M2 PO; +PANTOPRAZOLE SO40 MG PO; +POTASSIUM CHLO10 ME5 PO; +PRAVASTATIN SOD20 MG PO; +Synthroid,Levo88 MCG PO
[2022-08-11] MEDS ORDERED: Percocet 325 MG1 TAB PO (20:21)
== END 2022-08-11 20:58 | disposition home or self-care (01) ==
LOC: ED 20:10
DX: R04.0 Epistaxis (principal); K21.9 Gastro-esophageal reflux disease without esophagitis; I10 Essential (primary) hypertension; E78.00 Pure hypercholesterolemia, unspecified; Z98.890 Other specified postprocedural states

== ENCOUNTER 2022-11-29 07:06 | Emergency (ER) | payer MEDICARE ==
[~2022-11-29] VITALS: Ht 160 cm; Wt 72.6 kg
[~2022-11-29 07:06] MED LIST changes: +Percocet 325 MG1 TAB PO
[2022-11-29 07:46] LABS: BASO # 0.1 10*3/uL (0.0-0.1); BASO % 0.7 % (0.0-1.0); EOS # 0.3 10*3/uL (0.0-0.4); EOS % 3.6 % (1.0-4.0); HEMATOCRIT 40.6 % (37.0-47.0); LYMPH # 1.4 10*3/uL (1.3-4.4); LYMPH % 20.2 % (27.0-41.0); MEAN CELL VOLUME 89.4 fl (81.0-99.0); MEAN CORPUSCULAR HGB 28.9 pg (27.0-31.0); MEAN CORPUSCULAR HGB CONC 32.3 g/dl (33.0-37.0); MEAN PLATELET VOLUME 8.9 fl (9.6-12.3); MONO # 0.5 10*3/uL (0.1-1.0); MONO % 7.5 % (3.0-9.0); NEUT # 4.7 10*3/uL (2.3-7.9); NEUT % 67.7 % (47.0-73.0); PLATELET COUNT AUTOMATED 261 10*3/uL (130-400); RED BLOOD COUNT 4.54 10*6/uL (4.10-5.10); RED CELL DISTRI WIDTH 13.7 % (0-14.5); WHITE BLOOD COUNT 6.9 10*3/uL (4.8-10.8)
[2022-11-29 07:56] LABS: ACT PARTIAL THROMBO TIME 25.3 SECONDS (20.0-32.1)
[2022-11-29 08:03] LABS: ALKALINE PHOSPHATASE 103 U/L (46-116); BUN 9 mg/dl (9-23); CHLORIDE 103 mmol/L (98-107); SGPT/ALT 14 U/L (10-49); TOTAL PROTEIN 6.8 gm/dL (6.0-8.0)
[2022-11-29 08:26] LABS: BILIRUBIN Negative (Negative); BLOOD Negative (Negative); CLARITY Clear (Clear); COLOR Yellow (Yellow); GLUCOSE Negative (Negative); KETONE Negative (Negative); LEUKO ESTERASE Negative (Negative); NITRITE Negative (Negative); PH 7.5 (4.5-8.0); UROBILINOGEN 0.2 E.U./dl (0.0-1.0)
[2022-11-29 08:39] LABS: RBC 0-2 rbc/hpf (0-2)
[2022-11-29 08:40] LABS: BACTERIA TRACE; EPITHELIAL CELLS 0-2
[2022-11-29] MEDS ORDERED: GOOD NEIGHBOR M25 M1 PO (08:55)
== END 2022-11-29 09:48 | disposition home or self-care (01) ==
LOC: ED 07:06
PROVIDERS: Emergency Medicine
DX: R42 Dizziness and giddiness (principal); R53.1 Weakness; R07.89 Other chest pain; K21.9 Gastro-esophageal reflux disease without esophagitis; I10 Essential (primary) hypertension; E03.9 Hypothyroidism, unspecified; E78.00 Pure hypercholesterolemia, unspecified; Z90.49 Acquired absence of other specified parts of digestive tract; Z90.710 Acquired absence of both cervix and uterus; Z98.890 Other specified postprocedural states

== ENCOUNTER 2023-01-06 05:28 | Emergency (ER) | payer MEDICARE ==
[~2023-01-06] VITALS: Ht 152.4 cm; Wt 70.3 kg
[~2023-01-06 05:28] MED LIST changes: +GOOD NEIGHBOR M25 M1 PO
[2023-01-06 06:01] LABS: BASO % 0.4 % (0.0-1.0); EOS # 0.2 10*3/uL (0.0-0.4); EOS % 2.4 % (1.0-4.0); HEMATOCRIT 39.6 % (37.0-47.0); LYMPH # 2.4 10*3/uL (1.3-4.4); LYMPH % 33.4 % (27.0-41.0); MEAN CELL VOLUME 88.6 fl (81.0-99.0); MEAN CORPUSCULAR HGB 29.3 pg (27.0-31.0); MEAN CORPUSCULAR HGB CONC 33.1 g/dl (33.0-37.0); MONO # 0.7 10*3/uL (0.1-1.0); MONO % 9.4 % (3.0-9.0); NEUT # 3.8 10*3/uL (2.3-7.9); NEUT % 53.4 % (47.0-73.0); PLATELET COUNT AUTOMATED 212 10*3/uL (130-400); RED BLOOD COUNT 4.47 10*6/uL (4.10-5.10); RED CELL DISTRI WIDTH 14.5 % (0-14.5); WHITE BLOOD COUNT 7.2 10*3/uL (4.8-10.8)
[2023-01-06 06:14] LABS: ACT PARTIAL THROMBO TIME 24.5 SECONDS (20.0-32.1)
[2023-01-06 06:26] LABS: ALKALINE PHOSPHATASE 108 U/L (46-116); BUN 13 mg/dl (9-23); CHLORIDE 103 mmol/L (98-107); LIPASE 28 U/L (12-53); POTASSIUM 3.6 mmol/L (3.4-5.1); SGPT/ALT 37 U/L (10-49); TOTAL PROTEIN 6.7 gm/dL (6.0-8.0)
== END 2023-01-06 08:00 | disposition home or self-care (01) ==
LOC: ED 05:28
PROVIDERS: Internal Medicine
DX: R19.7 Diarrhea, unspecified (principal); E86.0 Dehydration; K21.9 Gastro-esophageal reflux disease without esophagitis; I10 Essential (primary) hypertension; E03.9 Hypothyroidism, unspecified; E78.00 Pure hypercholesterolemia, unspecified; Z90.49 Acquired absence of other specified parts of digestive tract; Z98.890 Other specified postprocedural states; Z90.710 Acquired absence of both cervix and uterus

== ENCOUNTER 2023-03-08 13:34 | Emergency (ER) | payer MEDICARE ==
[~2023-03-08] VITALS: Ht 152.4 cm; Wt 69.4 kg
[2023-03-08 14:02] LABS: BILIRUBIN 2+ (Negative); BLOOD Negative (Negative); CLARITY Clear (Clear); COLOR Dark Yellow (Yellow); GLUCOSE Negative (Negative); KETONE Negative (Negative); LEUKO ESTERASE Trace (Negative); NITRITE Negative (Negative)
[2023-03-08 14:43] LABS: BACTERIA 1+
[2023-03-08 16:14] LABS: BASO % 0.5 % (0.0-1.0); EOS # 0.1 10*3/uL (0.0-0.4); EOS % 0.6 % (1.0-4.0); HEMATOCRIT 39.3 % (37.0-47.0); LYMPH # 1.7 10*3/uL (1.3-4.4); LYMPH % 19.9 % (27.0-41.0); MEAN CELL VOLUME 89.9 fl (81.0-99.0); MEAN CORPUSCULAR HGB 29.3 pg (27.0-31.0); MEAN CORPUSCULAR HGB CONC 32.6 g/dl (33.0-37.0); MONO # 0.7 10*3/uL (0.1-1.0); MONO % 7.8 % (3.0-9.0); NEUT % 70.7 % (47.0-73.0); PLATELET COUNT AUTOMATED 322 10*3/uL (130-400); RED BLOOD COUNT 4.37 10*6/uL (4.10-5.10); RED CELL DISTRI WIDTH 16.4 % (0-14.5); WHITE BLOOD COUNT 8.5 10*3/uL (4.8-10.8)
[2023-03-08 16:54] LABS: ALKALINE PHOSPHATASE 666 U/L (46-116); BUN 12 mg/dl (9-23); CHLORIDE 101 mmol/L (98-107); POTASSIUM 3.5 mmol/L (3.4-5.1); SGPT/ALT 299 U/L (10-49); TOTAL PROTEIN 7.3 gm/dL (6.0-8.0)
== END 2023-03-08 23:15 | disposition home or self-care (01) ==
LOC: ED 13:34
PROVIDERS: Internal Medicine; Nurse Practitioner Family
DX: K83.8 Other specified diseases of biliary tract (principal); R74.01 Elevation of levels of liver transaminase levels; E78.00 Pure hypercholesterolemia, unspecified; E03.9 Hypothyroidism, unspecified; Z98.890 Other specified postprocedural states; Z90.49 Acquired absence of other specified parts of digestive tract; Z90.710 Acquired absence of both cervix and uterus